=== PATIENT | female | born 1990 | race Caucasian/White ===

== ENCOUNTER 2016-08-04 15:03 | Emergency (ER) | payer OTHER ==
[2016-08-04 15:19] VITALS: BP 143/99
--- NOTE | 2016-08-04 16:34 | RAD ---
Indication: Pain in the scapula and arm. Post fall 2 days ago. Very little range of motion in the shoulder. Comparison: None. Technique: Internal and external rotation AP and scapular Y views LEFT shoulder Report: Mild joint space widening and inferior subluxation of the humeral head relative to the glenoid suggesting potential joint effusion. Negative for glenohumeral dislocation. Normal acromioclavicular joint alignment. Negative for fracture. IMPRESSION: Glenohumeral joint space widening and mild inferior subluxation of the humeral head relative to the glenoid suspicious for presence of a joint effusion. Negative for fracture.
[2016-08-04] MEDS ORDERED: Ketorolac INJ* 60 MG/2 ML VIAL IM ONE (17:23)
--- NOTE | 2016-08-04 21:17 | UC ---
Shoulder Pain HPI - HPI Summary HPI Summary: Patient complaining of left shoulder pain after FOOSH (falling backwards) 2 days ago. She felt immediate pain and describes it as throbbing and severe in pain. Patient takes oxycodone daily. her last dose was 1 hour prior to arrival. patient remains tearful on examination. she denies hitting her head or other injuries. she has full ROM of her wrist, elbow and fingers. she states the worst pain is while she is trying to raise the arm. - History of Current Complaint Chief Complaint: UCUpperExtremity Stated Complaint: SHOULDER INJURY Time Seen by Provider: 08/04/16 15:47 Hx Obtained From: Patient Hx Last Menstrual Period: 07/30/16 ?: No Onset/Duration: Sudden Onset Timing: Constant Severity Initially: Moderate Severity Currently: Moderate Pain Intensity: 6 Pain Scale Used: 0-10 Numeric Character: Aching, Throbbing Aggravating Factor(s): Movement, Lifting, Abduction Alleviating Factor(s): Rest, Ice Associated Signs And Symptoms: Positive: Negative - Risk Factors Non-Orthopedic Risk Factor: Negative DVT Risk Factors: Negative Septic Arthritis Risk Factor: Negative - Allergies/Home Medications Allergies/Adverse Reactions: Allergies Allergy/AdvReac Type Severity Reaction Status Date / Time Amoxicillin [From Augmentin] Allergy Severe Rash Verified 08/04/16 15:20 Clavulanic Acid Allergy Severe Rash Verified 08/04/16 15:20 [From Augmentin] Doxycycline Allergy Severe dizziness Verified 08/04/16 15:20 nausea Sulfa Drugs Allergy Severe Rash Verified 08/04/16 15:20 Home Medications: Home Medications Oxycodone HCl [Oxycontin 40 mg] 30 mg 08/04/16 [History] Oxycodone W/ Acetaminophen [Percocet 7.5-325 mg (NF)] 1 tab PO Q6H PRN 08/04/16 [History Confirmed 08/04/16] PMH/Surg Hx/FS Hx/Imm Hx Previously Healthy: Yes Endocrine History Of: Denies: Diabetes Cardiovascular History Of: Denies: Hypertension, Pacemaker/ICD Respiratory History Of: Reports: Asthma - Surgical History Surgical History: Yes Surgery Procedure, Year, and Place: 2 LUMBAR SURGERY, TUBES EARS, [employer] - Family History Known Family History: Positive: Unknown - Social History Occupation: Employed Part-time Lives: With Family Alcohol Use: None Substance Use Type: None Smoking Status (MU): Light Every Day Tobacco Smoker Type: Cigarettes Amount Used/How Often: 1/3 ppd Length of Time of Smoking/Using Tobacco: 6 years Have You Smoked in the Last Year: Yes Review of Systems Constitutional: Negative Skin: Negative Eyes: Negative ENT: Negative Respiratory: Negative Cardiovascular: Negative Motor: Decreased ROM - d/t pain, Weakness Neurovascular: Negative Musculoskeletal: Arthralgia - over left shoulder Neurological: Negative All Other Systems Reviewed And Are Negative: Yes Physical Exam Triage Information Reviewed: Yes Appearance: Well-Appearing, No Pain Distress, Well-Nourished Vital Signs: Initial Vital Signs Temp 98.9 F 08/04/16 15:13 Pulse 103 08/04/16 15:13 Resp 20 08/04/16 15:13 BP 143/99 08/04/16 15:13 Pulse Ox 99 08/04/16 15:13 Vital Signs Reviewed: Yes Eye Exam: Normal ENT Exam: Normal Neck exam: Normal Neck: Positive: Supple, Nontender, No Lymphadenopathy Respiratory Exam: Normal Respiratory: Positive: Chest non-tender, Lungs clear Cardiovascular Exam: Normal Musculoskeletal Exam: Other - Limited range of motion. Unable to abduct shoulder. 9/10 pain. No edema, or deformity. Pulses full and equal. Neurological Exam: Normal Neurological: Positive: Alert Psychological Exam: Normal Psychological: Positive: Normal Response To Family, Age Appropriate Behavior Skin Exam: Normal Shoulder Course/Dx - Course Course Of Treatment: Xrays obtained. Discussed results with Dr. Sutherland (ortho) contact center specialist. Follow up with dr. sutherland this week for examination of subluxation of the L glenohumeral head. patient prescribed mobic for inflammation. Provider unable to provide pain medications d/t pain contract with PCP. Sling provided - Differential Dx/Diagnosis Differential Diagnosis/HQI/PQRI: Dislocation, Rotator Cuff Injury, Sprain, Strain Provider Diagnoses: shoulder pain Discharge - Discharge Plan Condition: Stable Disposition: HOME Prescriptions: Meloxicam [Mobic] 15 mg PO BEDTIME #15 tab MDD 1 Patient Education Materials: Shoulder Pain (ED) Referrals: Toby Hancock MD [Primary Care Provider] - Additional Instructions: Follow up with Dr. Sutherland. Continue with sling. Mobic 1 tablet at bedtime Ice as much as possible for swelling.
== END 2016-08-04 17:41 | disposition home or self-care (01) ==
LOC: UCEAST 15:03
DX: M25.512 Pain in left shoulder (principal); W19.XXXA Unspecified fall, initial encounter; Y92.9 Unspecified place or not applicable; Z88.0 Allergy status to penicillin; Z88.2 Allergy status to sulfonamides; F17.210 Nicotine dependence, cigarettes, uncomplicated
CPT/HCPCS: 96372; 99213; G0463; J1885

== ENCOUNTER 2024-07-04 05:16 | Inpatient (IN) ==
[2024-07-04 06:16] LABS: ABS Basophils 0.1 10^3/uL (0.0-0.1); ABS Eosinophils 0.1 10^3/uL (0.0-0.5); ABS Lymphocytes 2.5 10^3/uL (1.0-4.8); ABS Monocytes 0.5 10^3/uL (0.0-0.9); ABS Neutrophils 6.6 10^3/uL (1.5-7.6); Eosinophil % 0.8 %; Hematocrit 33.4 % (35-45); Hemoglobin 11.5 g/dL (11.5-14.3); Lymphocyte % 25.3 %; Mean Corpuscular Hemoglobin 30.4 pg (27-33); Mean Corpuscular Hgb Conc 34.6 g/dL (31-36); Mean Corpuscular Volume 87.9 fL (80-97); Mean Platelet Volume 7.6 fL (7.5-11.2); Platelet Count 207 10^3/uL (150-450); Red Cell Distribution Width 13.7 % (12-17); White Blood Count 9.7 10^3/uL (3.8-11.8)
[2024-07-04] MEDS ORDERED: Phenylephrine 40 mcg/mL 10mL (400mcg) SYRINGE ONE (06:49)
[2024-07-04] MEDS ORDERED: Oxytocin 10 UNITS/ML 1 ML VIAL ONE ×2 (06:49→09:09)
[2024-07-04] MEDS ORDERED: Phenylephrine IV 10 MG/ML 1 ml VIAL ONE (06:49)
[2024-07-04] MEDS ORDERED: Dexamethasone IV 4 MG/ML VIAL 1 ml VIAL ONE (06:49)
[2024-07-04] MEDS ORDERED: Ondansetron 4 mg VIAL 2 MG/ML 2 ml VIAL ONE (06:49)
[2024-07-04] MEDS ORDERED: Sodium Citrate/Citric Acid LIQ 15 ML UDC ONE (06:52)
[2024-07-04] MEDS ORDERED: Morphine PF AMP (0.5MG/ML) 5 MG/10 ML AMP ONE (06:58)
[2024-07-04] MEDS ORDERED: Naloxone 0.4 mg VIAL 0.4 mg/ml 1 ml VIAL IV PUSH PRN (07:17)
[2024-07-04] MEDS ORDERED: Ondansetron 4 mg VIAL 2 MG/ML 2 ml VIAL IV PRN (07:17)
[2024-07-04] MEDS ORDERED: Metoclopramide 5 MG/ML VIAL (10 mg) IV PRN (07:17)
[2024-07-04] MEDS: Sodium Citrate/Citric Acid LIQ 15 ML UDC PO ONE (07:39)
[2024-07-04] MEDS ORDERED: ceFAZolin *3* GM in NS PREMIX 3 GM/100 ML BAG IV ONE (07:43)
[2024-07-04] MEDS ORDERED: Buffered Lidocaine 1% SYRIN 1 ml INTRADERM ONE (07:43)
[2024-07-04] MEDS ORDERED: Sodium Citrate/Citric Acid LIQ 15 ML UDC PO ONE (07:43)
[2024-07-04] MEDS ORDERED: Lactated Ringers 1000 ml BAG 1,000 ML IV ONE (07:43)
[2024-07-04] MEDS ORDERED: Lactated Ringers 1000 ml BAG 1,000 ML IV SCH ×2 (08:00→10:00)
[2024-07-04] MEDS ORDERED: Lidocaine 2% PF 5 ML VIAL ONE (08:20)
[2024-07-04] MEDS ORDERED: Witch Hazel PAD JAR TOPICAL PRN (09:27)
[2024-07-04] MEDS ORDERED: Polyethylene Glycol 3350 17 GM PACKET PO PRN (09:27)
[2024-07-04] MEDS ORDERED: Dibucaine 1% OINT 28.35 GM TUBE PR PRN (09:27)
[2024-07-04] MEDS ORDERED: Glycerin ADULT 2.4 gm SUPP PR PRN (09:27)
[2024-07-04] MEDS ORDERED: Oxytocin in LR 20,000 MILLI.UNIT/1,000 ML BAG IV SCH (09:30)
[2024-07-04] MEDS: Acetaminophen IV 1 GM/100ML 1,000 MG/100 ML BAG IV PRN (09:43)
[2024-07-04 09:48] LABS: Urine Appearance Clear; Urine Bilirubin Negative (Negative); Urine Blood Negative (Negative); Urine Color Colorless; Urine Glucose Negative (Negative); Urine Ketones Negative (Negative); Urine Nitrite Negative (Negative); Urine Protein Negative (Negative); Urine Specific Gravity 1.007 (1.002-1.030); Urine Urobilinogen Negative (Negative)
[2024-07-04 10:58] LABS: Urine Benzodiazepine Screen None Detected (None Detect); Urine Cannabinoids Screen None Detected (None Detect); Urine Opiates Screen None Detected (None Detect)
[2024-07-05 06:41] LABS: ABS Eosinophils 0.1 10^3/uL (0.0-0.5); ABS Lymphocytes 2.4 10^3/uL (1.0-4.8); ABS Monocytes 0.9 10^3/uL (0.0-0.9); ABS Neutrophils 7.8 10^3/uL (1.5-7.6); Eosinophil % 0.5 %; Hematocrit 30.9 % (35-45); Hemoglobin 10.6 g/dL (11.5-14.3); Lymphocyte % 21.3 %; Mean Corpuscular Hemoglobin 30.5 pg (27-33); Mean Corpuscular Hgb Conc 34.3 g/dL (31-36); Mean Platelet Volume 7.4 fL (7.5-11.2); Platelet Count 170 10^3/uL (150-450); Red Blood Count 3.48 10^6/uL (3.63-4.92); White Blood Count 11.2 10^3/uL (3.8-11.8)
[2024-07-05 09:06] VITALS: BP 120/86
== END 2024-07-05 14:35 | disposition home or self-care (01) | DRG 788 ==
LOC: MCHOB 05:16
PROVIDERS: ADMIT Obstetrics & Gynecology; ATTEND Obstetrics & Gynecology